=== PATIENT | female | born 1985 ===

== ENCOUNTER 2024-06-24 08:27 | Outpatient (CLI) | payer OTHER | END 2024-06-24 08:36 | disposition home or self-care (01) | LOC: MAMO-SONO 08:27 | DX: R92.2 Inconclusive mammogram (principal); N64.51 Induration of breast; Z12.31 Encounter for screening mammogram for malignant neoplasm of breast; N94.6 Dysmenorrhea, unspecified; N83.00 Follicular cyst of ovary, unspecified side; N92.0 Excessive and frequent menstruation with regular cycle ==